=== PATIENT | male | born 1970 | race American Indian/Alaskan Native ===

== ENCOUNTER 2018-02-17 14:42 | Emergency (ER) | payer OTHER ==
[2018-02-17 15:14] VITALS: PULSE 60; BMI 23.0
[2018-02-17 15:49] VITALS: RESP 18; O2SAT 100
--- NOTE | 2018-02-17 15:54 | ED PDOC ---
Arrival/HPI - General Chief Complaint: Back Pain Time Seen by Provider: 02/17/18 14:44 Historian: Patient - History of Present Illness Narrative History of Present Illness (Text): 02/17/18 15:15 47 year old male, with no significant past medical history, presents to the ED complaining of right hip pain since yesterday. Patient informs worsening symptoms with radiation to right leg and with movement of the hip. Patient denies any recent injury or trauma to the area. Patient denies any chest pain, SOB, urinary symptoms, penile discomfort, scrotal pain, neck pain, back pain, abdominal pain, or any other complaints. Denies chest pain or shortness of breath. He denies weakness, numbness, tingling. Denies trauma. Reports some heavy lifting while working in [employer] Time/Duration: 24 hours Symptom Onset: Gradual Symptom Course: Unchanged Quality: Aching Activities at Onset: Light Context: Home Past Medical History - Provider Review Nursing Documentation Reviewed: Yes - Infectious Disease Hx of Infectious Diseases: None - Cardiac Hx Cardiac Disorders: No - Pulmonary Hx Respiratory Disorders: No - Neurological Hx Neurological Disorder: No - HEENT Hx HEENT Disorder: No - Renal Hx Renal Disorder: No - Endocrine/Metabolic Hx Endocrine Disorders: No - Hematological/Oncological Hx Blood Disorders: No - Integumentary Hx Dermatological Disorder: No - Musculoskeletal/Rheumatological Hx Musculoskeletal Disorders: No - Gastrointestinal Hx Gastrointestinal Disorders: No - Genitourinary/Gynecological Hx Genitourinary Disorders: No - Psychiatric Hx Psychophysiologic Disorder: No Hx Substance Use: No - Surgical History Hx Orthopedic Surgery: Yes (Left Knee) Family/Social History - Physician Review Nursing Documentation Reviewed: Yes Family/Social History: Unknown Family HX Smoking Status: Light Smoker < 10 Cigarettes Daily Hx Alcohol Use: Yes Frequency of alcohol use: Socially Hx Substance Use: No Allergies/Home Meds Allergies/Adverse Reactions: Allergies No Known Allergies Allergy (Verified 02/17/18 15:14) Home Medications: Home Meds Medication Instructions Recorded Confirmed RX: No Known Home Med 02/17/18 02/17/18 Review of Systems - Review of Systems Constitutional: absent: Fevers Respiratory: absent: SOB, Cough Cardiovascular: absent: Chest Pain, MENDEZ Gastrointestinal: absent: Abdominal Pain, Constipation, Diarrhea, Nausea, Vomiting Genitourinary Male: absent: Dysuria, Hematuria, Urinary Output Changes Musculoskeletal: Other (right sided hip pain with radiation to R leg and groin). absent: Back Pain, Neck Pain Skin: absent: Rash Neurological: absent: Headache, Dizziness Psychiatric: absent: Anxiety Physical Exam Vital Signs Reviewed: Yes Vital Signs Temp Pulse Resp BP Pulse Ox 02/17/18 15:49 97.7 F 60 18 155/90 H 100 02/17/18 15:14 97.7 F 60 19 162/112 H 99 Temperature: Afebrile Blood Pressure: Hypertensive Pulse: Regular Respiratory Rate: Normal Appearance: Positive for: Well-Appearing, Non-Toxic, Comfortable Pain Distress: None Mental Status: Positive for: Alert and Oriented X 3 - Systems Exam Head: Present: Atraumatic, Normocephalic Pupils: Present: PERRL Extroacular Muscles: Present: EOMI Conjunctiva: Present: Normal Mouth: Present: Moist Mucous Membranes Neck: Present: Normal Range of Motion Respiratory/Chest: Present: Clear to Auscultation, Good Air Exchange. No: Respiratory Distress, Accessory Muscle Use Cardiovascular: Present: Regular Rate and Rhythm, Normal S1, S2. No: Murmurs Abdomen: No: Tenderness, Distention, Peritoneal Signs Back: Present: Normal Inspection Upper Extremity: Present: Normal Inspection, Normal ROM, NORMAL PULSES, Neurovascularly Intact. No: Cyanosis, Edema, Deformity Lower Extremity: Present: Normal Inspection, NORMAL PULSES, Normal ROM, Neurovascularly Intact, Other (Muscle spasm noted to right lateral thigh). No: Edema, Swelling, Deformity Neurological: Present: GCS=15, CN II-XII Intact, Speech Normal Skin: Present: Warm, Dry, Normal Color. No: Rashes Psychiatric: Present: Alert, Oriented x 3, Normal Insight, Normal Concentration Medical Decision Making ED Course and Treatment: 02/17/18 15:15 Impression: 47 year old male presents to the ED complaining of right sided hip pain. Plan: -- Labs -- Toradol -- Valium -- Urinalysis Progress Notes: 02/17/18 17:13 CT LOWER THORAX: Unremarkable. LIVER: Unremarkable. No gross lesion or ductal dilatation. GALLBLADDER AND BILE DUCTS: Unremarkable. PANCREAS: Unremarkable. No gross lesion or ductal dilatation. SPLEEN: Unremarkable. ADRENALS: Unremarkable. No mass. KIDNEYS AND URETERS: Unremarkable. No hydronephrosis. No solid mass. VASCULATURE: Unremarkable. No aortic aneurysm. No atherosclerotic calcification or mural plaque present. BOWEL: Constipation without fecal impaction or obstruction. APPENDIX: No abnormalities to suggest acute appendicitis. No right lower quadrant inflammatory processes identified. PERITONEUM: Unremarkable. No free fluid. No free air. LYMPH NODES: Unremarkable. No enlarged lymph nodes. BLADDER: Unremarkable. REPRODUCTIVE: Unremarkable. BONES: No acute fracture. OTHER FINDINGS: None. IMPRESSION: No significant or acute findings to account for/ related to the clinical presentation. Additional benign and/or incidental findings described above. 02/17/18 17:28 Patient made aware of abnormal labs and constipation on CT. Presentation may be due to sciatica due to pain down into leg. Feels better after 2L IVF. - Medication Orders Current Medication Orders: Discontinued Medications Diazepam (Valium) 5 mg PO STAT STA; Protocol Stop: 02/17/18 15:16 Last Admin: 02/17/18 15:40 Dose: 5 mg Ketorolac Tromethamine (Toradol) 30 mg IVP STAT STA Stop: 02/17/18 15:16 Last Admin: 02/17/18 15:41 Dose: 30 mg MAR Pain Assessment Document 02/17/18 15:41 [place] (Rec: 02/17/18 15:41 [place] [facility] [id number] Pain Reassessment Is this a pain reassessment? No Sleep Is patient sleeping during reassessment? No Presence of Pain Presence of Pain Yes Pain Scale Used Protocol: PSCALES Pain Scale Used Numeric Location Left, Right or Bilateral Right Pain Location Body Site Abdomen IVP Administration Document 02/17/18 15:41 [place] (Rec: 02/17/18 15:41 [place] [facility] [id number] Charges for Administration # of IVP Administrations 1 - Scribe Statement The provider has reviewed the documentation as recorded by the Scribe Shruthi Diaz. All medical record entries made by the Rajanibe were at my direction and personally dictated by me. I have reviewed the chart and agree that the record accurately reflects my personal performance of the history, physical exam, medical decision making, and the department course for this patient. I have also personally directed, reviewed, and agree with the discharge instructions and disposition. Disposition/Present on Arrival - Present on Arrival Any Indicators Present on Arrival: No History of DVT/PE: No History of Uncontrolled Diabetes: No Urinary Catheter: No History of Decub. Ulcer: No History Surgical Site Infection Following: None - Disposition Have Diagnosis and Disposition been Completed?: Yes Diagnosis: Elevated CK, Sciatic leg pain, Constipation, Hematuria Disposition: HOME/ ROUTINE Disposition Time: 17:28 Patient Plan: Discharge Condition: GOOD Discharge Instructions (ExitCare): Sciatica, Rhabdomyolysis, Constipation in Adults, Blood in the Urine (Hematuria), Adult (DC), Sciatica Exercises Additional Instructions: Increase fluids. Follow-up with PMD within 2 days. Return to ED if condition worsens. Referrals: Srinivasan Fischer MD [Staff Provider] - Follow up with primary Forms: [employer] ([place]), WORK NOTE
[2018-02-17 16:11] LABS: BASO # 0.01 K/mm3 (0.0-2.0); BASO % 0.1 % (0.0-3.0); EOS % 0.1 % (1.5-5.0); GRAN # 12.97 (1.4-6.5); GRAN % 87.2 % (50.0-68.0); HEMOGLOBIN 13.4 g/dL (14.0-18.0); LYMPH # 1.5 (1.2-3.4); LYMPH % 10.4 % (22.0-35.0); MEAN CORPUSCULAR HEMOGLOBIN 28.5 pg (25.0-35.0); MEAN CORPUSCULAR HGB CONC 32.8 g/dl (31.0-37.0); MEAN PLATELET VOLUME 9.3 fl (7.0-11.0); MONO # 0.3 (0.1-0.6); MONO % 2.2 % (1.0-6.0); RBC 4.7 10^6/uL (3.5-6.1); RED CELL DISTRIBUTION WIDTH 14.8 % (11.5-14.5); WHITE BLOOD COUNT 14.9 10^3/uL (4.5-11.0)
[2018-02-17 16:21] LABS: ALB/GLOB RATIO 1.6 (1.1-1.8); ALBUMIN 4.6 g/dL (3.0-4.8); ALT/SGPT 40 U/L (7-56); AST/SGOT 49 U/L (17-59); BLOOD UREA NITROGEN 24 mg/dL (7-21); CALCIUM 9.4 mg/dL (8.4-10.5); GFR NON-AFRICAN AMERICAN > 60; LIPASE 64 U/L (23-300)
[2018-02-17] MEDS ORDERED: Sodium Chloride 0.9% 2,000 ML IV STA (16:22)
[2018-02-17] MEDS ORDERED: Morphine 4 mg/ml ISec IVP STA (16:23)
[2018-02-17 16:37] LABS: CK MB% 1.1 % (2.5-3.0); CK-MB 13.2 ng/mL (0.0-3.6)
--- NOTE | 2018-02-17 17:12 | CT ---
Date of service: 02/17/2018 PROCEDURE: CT Abdomen and Pelvis without intravenous contrast HISTORY: R flank pain radiating into groin COMPARISON: None. TECHNIQUE: Unenhanced. Neither IV nor oral contrast administered Radiation dose: Total exam DLP = 465.44 mGy-cm. This CT exam was performed using one or more of the following dose reduction techniques: Automated exposure control, adjustment of the mA and/or kV according to patient size, and/or use of iterative reconstruction technique. FINDINGS: LOWER THORAX: Unremarkable. LIVER: Unremarkable. No gross lesion or ductal dilatation. GALLBLADDER AND BILE DUCTS: Unremarkable. PANCREAS: Unremarkable. No gross lesion or ductal dilatation. SPLEEN: Unremarkable. ADRENALS: Unremarkable. No mass. KIDNEYS AND URETERS: Unremarkable. No hydronephrosis. No solid mass. VASCULATURE: Unremarkable. No aortic aneurysm. No atherosclerotic calcification or mural plaque present. BOWEL: Constipation without fecal impaction or obstruction. APPENDIX: No abnormalities to suggest acute appendicitis. No right lower quadrant inflammatory processes identified. PERITONEUM: Unremarkable. No free fluid. No free air. LYMPH NODES: Unremarkable. No enlarged lymph nodes. BLADDER: Unremarkable. REPRODUCTIVE: Unremarkable. BONES: No acute fracture. OTHER FINDINGS: None. IMPRESSION: No significant or acute findings to account for/ related to the clinical presentation. Additional benign and/or incidental findings described above.
[2018-02-17 17:45] VITALS: BP 155/89; TEMP 97.8
[2018-02-17 18:28] LABS: URINE BILIRUBIN NEGATIVE (NEGATIVE); URINE BLOOD TRACE-INTACT (NEGATIVE); URINE GLUCOSE (UA) NEGATIVE (NEGATIVE); URINE LEUKOCYTE ESTERASE NEGATIVE Leu/uL (NEGATIVE); URINE PROTEIN NEGATIVE mg/dL (<30 mg/dL); URINE UROBILINOGEN 0.2 E.U./dL (<1 E.U./dL)
[2018-02-17 18:30] LABS: URINE APPEARANCE CLEAR (CLEAR); URINE COLOR YELLOW (YELLOW)
[2018-02-17 18:37] LABS: URINE RBC 0 - 2 /hpf (0-2); URINE WBC NEGATIVE /hpf (0-6)
== END 2018-02-17 19:01 | disposition home or self-care (01) ==
LOC: ED 14:42
DX: K59.00 Constipation, unspecified (principal); R31.9 Hematuria, unspecified; M79.604 Pain in right leg; R74.8 Abnormal levels of other serum enzymes
CPT/HCPCS: 74176; 80053; 81001; 82550; 82553; 83690; 83735; 84100; 85025; 96361; 96374; 96375; 99284; J1885; J2270; J7030